=== PATIENT | male | born 1960 | race Caucasian/White ===

== ENCOUNTER → 2021-02-28 | Outpatient (CLI) | payer BC, OTHER ==
[~2021-02-28] MED LIST: BRILINTA 90 MG90 MG PO; ECOTRIN81 MG PO; LIPITOR10 MG PO; LISINOPRIL10 MG PO; LOPRESSOR 25 MG25 MG PO; NORFLEX 100 MG100 MG PO; PLAVIX 75 MG TA75 MG PO; PRINIVIL5 MG PO; Voltaren Gel 1 % TOP; XYZAL5 MG PO
== END ==
LOC: HEART 5 07:53
DX: I20.9 Angina pectoris, unspecified (principal); I07.1 Rheumatic tricuspid insufficiency; I27.20 Pulmonary hypertension, unspecified; R94.39 Abnormal result of other cardiovascular function study
CPT/HCPCS: 78452; 93306; A9502